=== PATIENT | male | born 1955 | race African-American/Black ===

== ENCOUNTER 2025-04-08 12:37 | Emergency (ER) | payer OTHER ==
[~2025-04-08] VITALS: Ht 188 cm; Wt 109.0 kg
[2025-04-08 12:46] VITALS: O2SAT 99
[2025-04-08 13:59] VITALS: BP 139/76; PULSE 66; RESP 18; TEMP 36.9; O2SAT 99
== END 2025-04-08 14:00 | disposition home or self-care (01) ==
LOC: ER 12:37
DX: M17.12 Unilateral primary osteoarthritis, left knee (principal); E11.9 Type 2 diabetes mellitus without complications; I10 Essential (primary) hypertension; Z98.890 Other specified postprocedural states
CPT/HCPCS: 73564; 99283